=== PATIENT | male | born 1980 | race Caucasian/White ===

== ENCOUNTER 2017-08-03 21:48 | Emergency (ER) | payer SELFPAY ==
[~2017-08-03] VITALS: Ht 185.4 cm; Wt 104.3 kg
[2017-08-03] MEDS ORDERED: methylPREDNISolone 125 MG (Solu-MEDROL) VIAL ONE (21:58)
[2017-08-03] MEDS ORDERED: diphenhydrAMINE 50 MG/ML INJ (BENADRYL) ONE (21:58)
[2017-08-03] MEDS ORDERED: FAMOTIDINE 20MG/2ML IV (PEPCID) ONE (21:59)
[2017-08-03 22:14] LABS: BASOPHILS % (AUTO) 0 % (0-10); EOSINOPHILS # (AUTO) 0.1 10^3/uL (0.0-0.3); EOSINOPHILS % (AUTO) 1 % (0-10); LYMPHOCYTES # (AUTO) 1.1 X 10^3 (1.0-4.0); LYMPHOCYTES % (AUTO) 16 % (12-44); MEAN CORPUSCULAR HEMOGLOBIN 31 PG (25-34); MEAN CORPUSCULAR HGB CONC 35 G/DL (32-36); MEAN CORPUSCULAR VOLUME 88 FL (80-99); MONOCYTES # (AUTO) 0.4 X 10^3 (0.0-1.0); MONOCYTES % (AUTO) 6 % (0-12); NEUTROPHILS # (AUTO) 5.4 X 10^3 (1.8-7.8); NEUTROPHILS % (AUTO) 76 % (42-75); PLATELET COUNT 252 10^3/uL (130-400); RED BLOOD COUNT 3.89 10^6/uL (4.35-5.85); RED CELL DISTRIBUTION WIDTH 12.7 % (10.0-14.5); WHITE BLOOD COUNT 7.1 10^3/uL (4.3-11.0)
[2017-08-03] MEDS ORDERED: methylPREDNISolone 125 MG (Solu-MEDROL) VIAL IVP ONE (22:15)
[2017-08-03] MEDS ORDERED: diphenhydrAMINE 50 MG/ML INJ (BENADRYL) IVP ONE (22:15)
[2017-08-03] MEDS ORDERED: FAMOTIDINE 20MG/2ML IV (PEPCID) IVP ONE (22:15)
[2017-08-03] MEDS ORDERED: PRD20T PO (22:17)
--- NOTE | 2017-08-03 22:17 | ED General ---
General Chief Complaint: Allergic Reaction Stated Complaint: POSS FOOD ALLERGY Source of Information: Patient Exam Limitations: No Limitations History of Present Illness Time Seen by Provider: 22:10 Initial Comments To ER with possible food allergy. Patient states that 3-4 days ago while at his mother's house he developed a diffuse itchy rash to his feet. These appeared like hives. He thought he would take care of this at home using Benadryl. They've also been using Rochelle and ranitidine. While at his mother' s house he was exposed to gain laundry detergent which she is known to be allergic to as well as shrimp. However, even today he presents with new wheals. He did have some swelling to his lips and forehead today which concerned his mother so he comes to the emergency room Timing/Duration: 1-2 Days Severity: Moderate Allergies and Home Medications Allergies Coded Allergies: shrimp (Verified Allergy, Intermediate, 08/03/17) Uncoded Allergies: GAIN LAUNDRY DETERGENT (Allergy, Unknown, 08/03/17) Home Medications Prednisone 20 Mg Tab, 40 MG PO DAILY, #8 Prescribed by: FARHAD TRIPLETT on 08/03/17 [id number] Constitutional: see HPI EENTM: see HPI Respiratory: no symptoms reported Cardiovascular: no symptoms reported Genitourinary: no symptoms reported Musculoskeletal: no symptoms reported Skin: see HPI Psychiatric/Neurological: No Symptoms Reported Hematologic/Lymphatic: No Symptoms Reported Past [id number] Hx Patient Social History Recent Foreign Travel: No Contact w/Someone Who Travel: No Physical Exam Vital Signs Vital Sign - Last 12Hours 08/03/17 21:58 Temp 99.4 Pulse 98 Resp 18 B/P (MAP) 137/98 Pulse Ox 97 O2 Delivery Room Air Capillary Refill : General Appearance: No Apparent Distress, WD/WN Eyes: Bilateral Eye Normal Inspection, Bilateral Eye PERRL, Bilateral Eye EOMI HEENT: PERRL/EOMI, TMs Normal Neck: Full Range of Motion, Normal Inspection Respiratory: Normal Breath Sounds, No Accessory Muscle Use, No Respiratory Distress Cardiovascular: Regular Rate, Rhythm, Normal Peripheral Pulses Gastrointestinal: Normal Bowel Sounds, Non Tender, Soft Extremity: Normal Capillary Refill, Normal Inspection Neurologic/Psychiatric: Alert, Oriented x3, No Motor/Sensory Deficits Skin: Normal Color, Warm/Dry, Other (hives to the forehead, neck, chest and upper extremities. There is some swelling to lower extremities. 1+ pitting bilateral lower extremities) Progress/Results/Core Measures Suspected Sepsis SIRS Temperature: Pulse: Respiratory Rate: Laboratory Tests 08/03/17 22:05: White Blood Count 7.1 Blood Pressure / Mean: Laboratory Tests 08/03/17 22:05: Creatinine 0.86, Platelet Count 252 Results/Orders Lab Results Laboratory Tests Test 08/03/17 22:05 Range/Units White Blood Count 7.1 4.3-11.0 10^3/uL Red Blood Count 3.89 L 4.35-5.85 10^6/uL Hemoglobin 12.1 L 13.3-17.7 G/DL Hematocrit 34 L 40-54 % Mean Corpuscular Volume 88 80-99 FL Mean Corpuscular Hemoglobin 31 25-34 PG Mean Corpuscular Hemoglobin Concent 35 32-36 G/DL Red Cell Distribution Width 12.7 10.0-14.5 % Platelet Count 252 130-400 10^3/uL Mean Platelet Volume 10.0 7.4-10.4 FL Neutrophils (%) (Auto) 76 H 42-75 % Lymphocytes (%) (Auto) 16 12-44 % Monocytes (%) (Auto) 6 0-12 % Eosinophils (%) (Auto) 1 0-10 % Basophils (%) (Auto) 0 0-10 % Neutrophils # (Auto) 5.4 1.8-7.8 X 10^3 Lymphocytes # (Auto) 1.1 1.0-4.0 X 10^3 Monocytes # (Auto) 0.4 0.0-1.0 X 10^3 Eosinophils # (Auto) 0.1 0.0-0.3 10^3/uL Basophils # (Auto) 0.0 0.0-0.1 10^3/uL Sodium Level 141 135-145 MMOL/L Potassium Level 3.9 3.6-5.0 MMOL/L Chloride Level 107 98-107 MMOL/L Carbon Dioxide Level 23 21-32 MMOL/L Anion Gap 11 5-14 MMOL/L Blood Urea Nitrogen 13 7-18 MG/DL Creatinine 0.86 0.60-1.30 MG/DL Estimat Glomerular Filtration Rate > 60 BUN/Creatinine Ratio 15 Glucose Level 169 H 70-105 MG/DL Calcium Level 8.7 8.5-10.1 MG/DL C-Reactive Protein High Sensitivity 14.89 H 0.00-0.50 MG/DL My Orders Orders - FARHAD TRIPLETT APRN Cbc With Automated Diff (08/03/17 22:08) Hs C Reactive Protein (08/03/17 22:08) Saline Lock/Iv-Start (08/03/17 22:08) Basic Metabolic Panel (08/03/17 22:08) Methylprednisolone Sod Succ (Solu-Medrol (08/03/17 22:15) Famotidine Injection (Pepcid Injection) (08/03/17 22:15) Diphenhydramine Injection (Benadryl Inje (08/03/17 22:15) Medications Given in ED Current Medications Medications Dose Ordered Sig/Milka Route Start Time Stop Time Status Last Admin Dose Admin Diphenhydramine HCl 25 mg ONCE ONCE IVP 08/03/17 22:15 08/03/17 22:16 DC 08/03/17 22:08 25 MG Famotidine 20 mg ONCE ONCE IVP 08/03/17 22:15 08/03/17 22:16 DC 08/03/17 22:12 20 MG Methylprednisolone Sodium Succinate 125 mg ONCE ONCE IVP 08/03/17 22:15 08/03/17 22:16 DC 08/03/17 22:10 125 MG Vital Signs/I&O Vital Sign - Last 12Hours 08/03/17 21:58 Temp 99.4 Pulse 98 Resp 18 B/P (MAP) 137/98 Pulse Ox 97 O2 Delivery Room Air Capillary Refill : Departure Communication (Admissions) Progress Notes 2246- patient states he is feeling much better. He states "this is the first time in several days that I can say that I don't itch and my feet don't hurt." The wheels to the forehead are now resolved and the rash on his upper chest and neck is still present but much cradle slide maker in color. Impression Impression: Primary Impression: Urticaria Disposition: 01 HOME, SELF-CARE Condition: Stable Departure-Patient Inst. Decision time for Depature: 22:15 Patient Instructions: NO INSTRUCTIONS GIVEN Add. Discharge Instructions: 1. Take benadryl 1 tablet every 4-6 hours as needed for itching in addition to cetirizine (over the counter allergy pill) and ranitidine. 2. Steroids as directed 3. Follow up with your doctor next week All discharge instructions reviewed with patient and/or family. Voiced understanding. Scripts Prednisone (Prednisone) 20 Mg Tab 40 MG PO DAILY, #8 TAB Prov: FARHAD TRIPLETT APRN 08/03/17 Work/School Note: Local [employer] FARHAD TRIPLETT APRN Aug 03, 2017 22:17
[2017-08-03 22:33] LABS: ANION GAP 11 MMOL/L (5-14); BLOOD UREA NITROGEN 13 MG/DL (7-18); BUN/CREATININE RATIO 15; CALCIUM 8.7 MG/DL (8.5-10.1); CARBON DIOXIDE 23 MMOL/L (21-32); CHLORIDE 107 MMOL/L (98-107); CREATININE SERUM 0.86 MG/DL (0.60-1.30); GFR ESTIMATED > 60; GLUCOSE 169 MG/DL (70-105); POTASSIUM 3.9 MMOL/L (3.6-5.0); SODIUM 141 MMOL/L (135-145); hs C REACTIVE PROTEIN 14.89 MG/DL (0.00-0.50)
[2017-08-03 23:09] VITALS: BP 124/79
== END 2017-08-03 23:09 | disposition home or self-care (01) ==
LOC: EDUNIT# 21:48 → ER 21:52
DX: L50.9 Urticaria, unspecified (principal)
CPT/HCPCS: 36415; 80048; 85025; 86141